=== PATIENT | male | born 1970 | race Two or more races ===

== ENCOUNTER 2024-01-03 07:17 | Emergency (ER) | payer OTHER ==
[~2024-01-03] VITALS: Ht 170.2 cm; Wt 97.5 kg
[2024-01-03] MEDS ORDERED: BISOPROLOL-HCT1 EACH PO (07:32)
[2024-01-03] MEDS ORDERED: AMLODIPINE-OLM1 EAC2 PO (07:32)
[2024-01-03] MEDS ORDERED: CRESTOR10 MG PO (07:32)
[2024-01-03] MEDS ORDERED: ANALPRAM HC 2.530 GM RECTAL (09:25)
[2024-01-03] MEDS ORDERED: DEXAMETHASONE SODIUM PHOSPHATE 4 MG/ML VIAL IM ONE (09:30)
[2024-01-03] MEDS ORDERED: KETOROLAC TROMETHAMINE 60 MG VIAL IM ONE (09:30)
== END 2024-01-03 09:36 | disposition home or self-care (01) ==
LOC: ER 07:19
DX: K64.9 Unspecified hemorrhoids (principal)